=== PATIENT | male | born 1985 | race Caucasian/White ===

== ENCOUNTER 2020-10-22 06:07 | Emergency (ER) | payer MEDICAID, OTHER ==
[~2020-10-22] VITALS: Ht 182.9 cm; Wt 80.7 kg
[2020-10-22] MEDS ORDERED: HYDR28.32 TP (06:34)
[2020-10-22] MEDS ORDERED: TETR15DR85 OP (06:34)
[2020-10-22 06:39] VITALS: BP 143/88
--- NOTE | 2020-10-22 06:39 | NUR ---
*BED 4
--- NOTE | 2020-10-22 06:39 | NUR ---
[id number] FROM HOME C/O CP AND TINGLING SENSATION FROM BACK OF THE HEAD FROM A LUMP. TO ER BED 5.
== END 2020-10-22 07:10 | disposition home or self-care (01) ==
LOC: ER 06:09
DX: I49.3 Ventricular premature depolarization (principal); R06.4 Hyperventilation; R00.2 Palpitations